=== PATIENT | male | born 1960 | race Caucasian/White ===

== ENCOUNTER → 2023-12-10 06:11 | Day surgery (SDC) | payer OTHER, SELFPAY | LOC: GI 06:11 | PROVIDERS: ATTENDING PHYSICIAN Internal Medicine Gastroenterology; FAMILY PHYSICIAN Internal Medicine | DX: Z12.11 Encounter for screening for malignant neoplasm of colon (principal); Z86.010 Personal history of colon polyps; K64.8 Other hemorrhoids | CPT/HCPCS: G0105 ==

== ENCOUNTER → 2024-04-21 07:58 | Outpatient (REF) | payer OTHER, SELFPAY | LOC: HWRCS 07:58 | PROVIDERS: ATTENDING PHYSICIAN Internal Medicine Cardiovascular Disease; FAMILY PHYSICIAN Internal Medicine | DX: R06.09 Other forms of dyspnea (principal) | CPT/HCPCS: 93306 ==